=== PATIENT | male | born 1950 | race American Indian/Alaskan Native ===

== ENCOUNTER 2017-11-23 07:54 | Outpatient (CLI) | payer MEDICARE, OTHER ==
--- NOTE | 2017-11-23 09:40 | Ultrasound Report ---
ULTRASOUND RENAL BILATERAL HISTORY: Renal cyst. TECHNIQUE: transabdominal ultrasound with color Doppler interrogation. COMPARISON: CT abdomen pelvis with and without contrast on 04/20/14. FINDINGS: The right kidney measures 10.9 x 5.1 x 5.5cm. Right renal cortex: 1.6cm. The left kidney measures 10.5 x 5.4 x 5.7cm. Left renal cortex: 1.5cm. Scans of the kidneys show normal renal contours. There is normal central calyceal clustering and good preservation of the cortical thickness. A 3.4 x 2.5 cm simple cyst is noted at the inferior pole of the right kidney. There a few tiny millimetric cysts identified in both kidneys. There is no evidence of mass or hydronephrosis. The views of the bladder and the region of the ureters appear normal. IMPRESSION: Bilateral renal cysts as described. No significant change is appreciated since 04/20/14 CT.
== END 2017-11-23 07:55 | disposition home or self-care (01) ==
LOC: US 07:54
PROVIDERS: ATTEND Urology
DX: N28.1 Cyst of kidney, acquired (principal); I10 Essential (primary) hypertension; F17.210 Nicotine dependence, cigarettes, uncomplicated
CPT/HCPCS: 76770

== ENCOUNTER 2019-01-12 07:49 | Outpatient (CLI) | payer MEDICARE, OTHER ==
--- NOTE | 2019-01-12 08:38 | Ultrasound Report ---
Limited right thigh soft tissue Ultrasound HISTORY: R22.41 SUBCUTANEOUS MASS OF RIGHT LOWER EXTREMITY. TECHNIQUE: Grayscale and color imaging performed. COMPARISON: None FINDINGS: There is a heterogeneous mass which is ovoid in appearance in the mid right thigh and measu res 6.7 x 2.6 x 4.8 cm. Again there is heterogeneous echogenicity and there is some internal blood fl ow. No other abnormality identified. IMPRESSION: Heterogeneous ovoid mass in the soft tissues along the mid right thigh. Recommend follow- up MRI with contrast for further evaluation since a neoplastic process is in the differential. Signer Name: Shawn Armstrong MD Signed: 01/12/2019 8:34 AM Workstation Name: [id number]
== END 2019-01-12 07:50 | disposition home or self-care (01) ==
LOC: US 07:49
PROVIDERS: ATTEND Family Medicine
DX: R22.41 Localized swelling, mass and lump, right lower limb (principal); I10 Essential (primary) hypertension

== ENCOUNTER 2020-12-26 06:31 | Day surgery (SDC) | payer MEDICARE ==
[2020-12-25 09:57] LABS: Hematocrit 39.6 % (35.5-45.6); Hemoglobin 13.4 gm/dl (11.8-15.2); Mean Corpuscular HGB Conc 34 % (32-34); Mean Corpuscular Volume 87 fl (84-94); Platelet Count 232 K/mm3 (140-440); Red Blood Count 4.53 M/mm3 (3.65-5.03); Red Cell Distribution Width 15.5 % (13.2-15.2)
[2020-12-25 09:58] LABS: BUN/Creatinine Ratio 17; Blood Urea Nitrogen 19 mg/dL (9-20); Calcium 8.8 mg/dL (8.4-10.2); Hemolysis Index 14
[~2020-12-26 06:31] MED LIST: LACTATED RINGERS 1,000 ML IV SCH
[2020-12-26] MEDS ORDERED: ceFAZolin/STERILE WATER 2 GM/20 ML SYRINGE IV NR (07:00)
--- NOTE | 2020-12-26 07:33 | Anesthesia Day of Surgery ---
Anesthesia Day of Surgery - Day of Surgery Patient Examined: Yes Patient H&P Reviewed: Yes Patient is NPO: Yes
--- NOTE | 2020-12-26 07:33 | Anesthesia Consultation ---
Anesthesia Consult and Med Hx Date of service: 12/26/20 - Airway Anesthetic Teeth Evaluation: Poor (some missing teeth, broken tooth (right bottom)) ROM Head & Neck: Adequate Mental/Hyoid Distance: Adequate Mallampati Class: Class II Intubation Access Assessment: Probably Good - Pre-Operative Health Status ASA Pre-Surgery Classification: ASA3 Proposed Anesthetic Plan: General - Pulmonary Hx Smoking: Yes (1 PACK PER WEEK) Hx Sleep Apnea: No ([place] PRE SCREEN HIGH RISK) - Cardiovascular System Hx Hypertension: Yes (X 20 YRS) Hx Coronary Artery Disease: Yes (high cholesterol) Hx Heart Attack/AMI: Yes (2004-STATED WAS TOLD HE DID NOT NEED TX) Hx Angina: No - Central Nervous System CVA: Yes (2004- NO DEFICITS / NO BLOOD THINNERS) - Endocrine Hx Renal Disease: Yes Hx End Stage Renal Disease: No - Hematic Hx Anemia: No - Other Systems Hx Cancer: No
[2020-12-26] MEDS ORDERED: MIDAZOLAM 2 MG/2 ML INJ ONE (07:39)
[2020-12-26] MEDS ORDERED: propofoL 200 MG/20 ML VIAL IV ONE (07:40)
[2020-12-26] MEDS ORDERED: fentaNYL 100 MCG/2 ML INJ ONE (07:40)
[2020-12-26] MEDS ORDERED: WATER FOR IRRIG STERILE 1,500 ML BOTTLE IR ONE (07:42)
[2020-12-26] MEDS ORDERED: WATER FOR IRRIG STERILE 2000 ML IR ONE ×2 (07:42)
[2020-12-26] MEDS ORDERED: FAMOTIDINE 20 MG/2 ML INJ IV SCH (08:00)
[2020-12-26] MEDS ORDERED: MIDAZOLAM 2 MG/2 ML INJ IV NR (08:00)
[2020-12-26] MEDS ORDERED: ePHEDrine SULFATE 50 MG/1 ML INJ ONE (08:29)
--- NOTE | 2020-12-26 08:54 | Short Stay Summary ---
Short Stay Documentation Date of service: 12/26/20 - History H&P: obtained from office - Allergies and Medications Current Medications: Allergies No Known Allergies Allergy (Verified 02/12/14 09:31) Home Medications Medication Instructions Recorded Confirmed Last Taken Type Chlorthalidone [Thalitone] 25 mg PO QDAY 12/25/20 12/26/20 12/25/20 History Hydroxyzine HCl [hydrOXYzine] 25 mg PO PRN PRN 12/25/20 12/26/20 12/25/20 History Omeprazole 20 mg PO DAILY 12/25/20 12/26/20 12/25/20 History Simvastatin 40 mg PO QHS 12/25/20 12/26/20 12/25/20 History lisinopriL [Zestril TAB] 40 mg PO QDAY 12/25/20 12/26/20 12/25/20 History Active Medications Cefazolin Sodium (Cefazolin/Sterile Water 2 Gm/20 Ml Syringe) 2 gm IV PREOP NR Stop: 12/26/20 21:00 Famotidine (Famotidine 20 Mg/2 Ml Inj) 20 mg IV PREOP MICA Stop: 12/26/20 14:00 Lactated Ringer's (Lactated Ringers) 1,000 mls @ 100 mls/hr IV DIRECT MICA Stop: 12/26/20 23:59 Last Admin: 12/26/20 06:55 Dose: 100 mls/hr Documented by: - Brief post op/procedure progress note Date of procedure: 12/26/20 Pre-op diagnosis: BPH Post-op diagnosis: other (BPH , URETHRAL STRICTURE) Procedure: CYSTO, DVIU, RPG Surgeon: MYAH GHOSH Pathology: none Condition: stable - Hospital course Hospital course: BACTRIM & MOTRIN ON CHART - Disposition Condition at discharge: Stable Disposition: 01 HOME / SELF CARE / HOMELESS Short Stay Discharge Plan Follow up with: [facility] [Primary Care Provider] - 7 Days
[2020-12-26] MEDS ORDERED: LIDOCAINE PF 100 MG/5 ML (CARDIAC SYRINGE) IV ONE (08:55)
--- NOTE | 2020-12-26 09:19 | Operative Report ---
DATE OF SURGERY: 12/26/2020 PREOPERATIVE DIAGNOSES: Benign prostatic hypertrophy, pelvic pain, urinary tract infection. POSTOPERATIVE DIAGNOSES: Benign prostatic hypertrophy, pelvic pain, urinary tract infection, urethral stricture. PROCEDURES: Cystoscopy, direct vision internal urethrotomy, bilateral retrograde pyelograms. SURGEON: Dashawn Perez MD ANESTHESIA: General. ESTIMATED BLOOD LOSS: Minimal. FLUIDS: Crystalloid. COMPLICATIONS: No complications. INDICATIONS: This patient is a 70-year-old gentleman who has been seen by Dr. Vazquez in our office in the past, presents earlier this month with problems urinating with voiding dysfunction, penile pain, lower back pain. 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 He has had multiple back surgeries. He presents now for intervention. DESCRIPTION OF PROCEDURE: The patient was taken to the operative suite, placed in a supine position. After adequate general anesthesia, placed in the dorsal lithotomy position, prepped and draped in a sterile fashion. Pancystourethroscopy was performed with a 22-[place] cystoscope. The patient was noted to have bulbar stricture. Using a cold knife, cut at the 12 o'clock position, I was able to advance my scope. Prostate revealed moderate trilobar obstruction. Bladder, no tumors or stones were noted. He does have some mild diffuse trabeculation. Both ureteral orifices in normal position. Bilateral retrograde pyelograms were obtained with an 8-[place] catheter and 8 mL of contrast with no filling defects or obstruction. Bladder was drained. Rectal exam was benign. The patient was extubated and taken to recovery room. He will go home on Bactrim and Motrin. We will reevaluate in the office to see if his pain is better after correction of the stricture. Otherwise, the patient may need spine evaluation due to degenerative changes in his spine. TID: [id number] RECEIPT: [id number] CYDNEY/ONUR
--- NOTE | 2020-12-26 09:20 | Fluoroscopy Report ---
FLUOROSCOPY RETROGRADE UROGRAPHY HISTORY: Stone manipulation FINDINGS: Fluoroscopy was provided by radiology during retrograde urography by the urologist. Bifid r enal pelvises are noted bilaterally. No filling defect or abnormal dilatation is identified. Please c orrelate with the procedural report as needed. Fluoroscopy time: 10 seconds Fluoroscopic images: 5 Signer Name: Ray Fernández Jr, MD Signed: 12/26/2020 9:16 AM Workstation Name: [id number]
[2020-12-26 10:18] VITALS: BP 132/80
--- NOTE | 2020-12-26 14:51 | Post Anesthesia Evaluation ---
- Post Anesthesia Evaluation Patient Participated: Yes Airway Patent: Yes Stable Respiratory Function: Yes Nausea/Vomiting: No Temp > 96.8F: Yes Pain Manageable: Yes Adequeate Hydration: Yes Anesthesia Complications: No
== END 2020-12-26 10:10 | disposition home or self-care (01) ==
LOC: OR 06:31
PROVIDERS: ATTEND Urology
DX: N40.1 Benign prostatic hyperplasia with lower urinary tract symptoms (principal); Z20.822 Contact with and (suspected) exposure to COVID-19; N35.919 Unspecified urethral stricture, male, unspecified site; I10 Essential (primary) hypertension; I25.10 Atherosclerotic heart disease of native coronary artery without angina pectoris; E78.00 Pure hypercholesterolemia, unspecified; I25.2 Old myocardial infarction; Z86.73 Personal history of transient ischemic attack (TIA), and cerebral infarction without residual deficits; F17.210 Nicotine dependence, cigarettes, uncomplicated; Z79.899 Other long term (current) drug therapy; Z98.890 Other specified postprocedural states
CPT/HCPCS: 36415; 52276; 74420; 80048; 85027; A4217; C1758; C1769; J0690; J2001; J2704; J3010; J7120; Q9967; U0003; J2250